=== PATIENT | male | born 1985 | race African-American/Black ===

== ENCOUNTER 2021-09-27 14:25 | Emergency (ER) | payer MEDICAID ==
[~2021-09-27] VITALS: Ht 185.4 cm; Wt 108.0 kg
[2021-09-27 14:27] VITALS: BP 134/81
[2021-09-27] MEDS ORDERED: ALBUTEROL (0.083%) 2.5MG/3ML NEB HHN STA (16:31)
[2021-09-27] MEDS ORDERED: IPRATROPIUM BROMIDE (0.02%) 0.5MG/2.5ML NEB HHN STA (16:31)
[2021-09-27 16:54] LABS: BASOPHILS % 0.2 % (0.0-2.0); EOSINOPHILS % 0.9 % (0.0-5.0); HEMOGLOBIN. 14.7 g/dL (14.0-18.0); LYMPHOCYTES % 24.8 % (20.0-50.0); MEAN CORPUSCULAR HEMOGLOBIN 32.2 pg (28.0-32.0); MEAN CORPUSCULAR VOLUME 96.2 fL (80.0-94.0); MEAN PLATELET VOLUME 8.4 fl (7.4-10.4); NEUTROPHILS % 69.1 % (40.0-76.0); PLATELET 188 x1000/uL (130-400); RED BLOOD CELL COUNT 4.58 mill/uL (4.7-6.1); RED CELL DISTRIBUTION WIDTH 12.4 % (11.6-14.6)
[2021-09-27 17:00] LABS: CHLORIDE 109 mEq/L (98-107)
[2021-09-27] MEDS ORDERED: PREDNISONE 20MG TABLET PO ONE (17:15)
[2021-09-27] MEDS ORDERED: BECL10.62 INH (17:48)
[2021-09-27] MEDS ORDERED: AMOX-424 MT (17:48)
[2021-09-27] MEDS ORDERED: P50 MT (17:48)
[2021-09-27] MEDS ORDERED: ALBU6.7H9 INH (17:48)
[2021-09-27] MEDS ORDERED: AZIT250T12 MT (18:17)
== END 2021-09-27 18:43 | disposition home or self-care (01) ==
LOC: ER 14:25 → EDBD 14:25 → ER 18:43
DX: J44.1 Chronic obstructive pulmonary disease with (acute) exacerbation (principal); Z88.0 Allergy status to penicillin
CPT/HCPCS: 36415; 71045; 80053; 83880; 84484; 85025; 93005; 94640; 99285; J7512; Z7610